=== PATIENT | male | born 1955 | race African-American/Black ===

== ENCOUNTER 2023-09-22 22:24 | Inpatient (IN) | payer OTHER, MEDICARE ==
[~2023-09-22] VITALS: Ht 188 cm; Wt 110.9 kg
[2023-09-22 22:15] VITALS: PULSE 100; RESP 10; O2SAT 93
[2023-09-22 22:40] VITALS: PULSE 85; RESP 20; O2SAT 88
[2023-09-22] MEDS ORDERED: DOPamine 400MG/D5W[STANDARD] 250 ML IV PRN (22:45)
[2023-09-22] MEDS: NOREPINEPHRINE 8 MG/0.9 % NACL 250 ML IV PRN (23:00)
[2023-09-22] MEDS ORDERED: PHENYLEPHRINE 200 MG/D5%-WATER 250 ML IV PRN (23:00)
[2023-09-22 23:02] LABS: HEMATOCRIT 47.2 % (41-53); HEMOGLOBIN 14.6 g/dL (13.5-17.5); MEAN CORPUSCULAR HEMOGLOBIN 28.2 pg (26.0-34.0); MEAN CORPUSCULAR HGB CONC 30.9 G/dL (31.0-37.0); MEAN CORPUSCULAR VOLUME 91 fL (80-100); PLATELET COUNT (AUTO) 336 K/uL (150-450); RED BLOOD CELL COUNT(AUTO) 5.17 MIL/uL (4.50-5.90); RED CELL DISTRIBUTION WIDTH 21.7 % (11.5-14.5); WHITE BLOOD COUNT (AUTO) 6.1 K/uL (4.5-11.0)
[2023-09-22] MEDS ORDERED: PROPOFOL 1000 MG/ISO-OSM 100 ML ONE (23:13)
[2023-09-22 23:14] LABS: CALCIUM, TOTAL 7.9 mg/dL (8.8-10.5); CREATININE 1.47 mg/dL (0.60-1.30); INR 1.2 (0.9-1.1); POTASSIUM 3.6 mmol/L (3.5-5.1); PROTHROMBIN TIME 12.4 SEC (9.4-11.6)
[2023-09-22 23:27] LABS: TROPONIN I-HIGH SENSITIVITY 21 ng/L (<76)
[2023-09-22 23:35] LABS: BAND NEUTROPHILS % (MANUAL) 0 % (0-5)
[2023-09-22 23:36] LABS: LYMPHOCYTES % (MANUAL) 63 % (22-44); MONOCYTES % (MANUAL) 3 % (2-9); REACTIVE LYMPHOCYTES 6 % (0-0); SEGMENTED NEUTROPHILS % 28 % (40-70); TOTAL CELLS COUNTED 100
[2023-09-22 23:39] LABS: ALBUMIN 2.8 g/dL (3.4-5.0); BILIRUBIN,TOTAL 0.4 mg/dL (0.1-1.0); TOTAL PROTEIN, SERUM 6.4 g/dL (6.4-8.2)
[2023-09-22] MEDS ORDERED: BISACODYL 10 MG RECTAL RECTAL SUPPOSITORY PR PRN (23:45)
[2023-09-22] MEDS ORDERED: ONDANSETRON HCL 4 MG/2 ML VIAL IVP PRN (23:45)
[2023-09-22] MEDS ORDERED: DEXTROSE 50%-WATER 25 GM/50 ML SYRINGE IVP PRN (23:45)
[2023-09-22] MEDS: SODIUM CHLORIDE 0.9% 1,000 ML IV ONE (23:45)
[2023-09-22 23:51] LABS: COVID AG,FIA SOURCE NASAL SWAB
[2023-09-22 23:58] LABS: ABG BASE EXCESS -12.5 mmol/L (-2.0-3.0); PO2, ARTERIAL BG 112.7 mmHg (66.0-74.0); SOURCE, BLOOD GAS ARTERIAL; TEMPERATURE, FAHRENHEIT, BG 96.8 FAHREN (96.0-98.6)
[2023-09-23] VITALS (22 sets, daily range): BP systolic 107–144; BP diastolic 68–78; PULSE 66–92; RESP 30–38; TEMP 92.3–98.5; O2SAT 86–100
[2023-09-23] MEDS: HEPARIN SODIUM,PORCINE 5,000 UNITS/ML VIAL SQ SCH
[2023-09-23 00:02] LABS: APPEARANCE,URINE HAZY (CLEAR); BILIRUBIN,URINE NEGATIVE (NEGATIVE); COLOR,URINE YELLOW (YELLOW); GLUCOSE, URINE (UA) >=1000 mg/dL (NEGATIVE); KETONES,URINE NEGATIVE (NEGATIVE); LEUKOCYTE ESTERASE ,URINE NEGATIVE (NEGATIVE); NITRATE,URINE NEGATIVE (NEGATIVE); OCCULT BLOOD,URINE LARGE (NEGATIVE); PH,URINE 6.5 (5.0-8.0); PH,URINE DRUG SCREEN 6.5 (5.0-8.0); PROTEIN,URINE >600,SEE CONFIRM mg/dL (NEGATIVE); SPECIFIC GRAVITIY, URINE 1.015 (1.003-1.030); UROBILINOGEN,URINE <=1.0 mg/dL (<=1.0)
[2023-09-23] MEDS: SODIUM BICARBONATE 100 MEQ in SODIUM CHLORIDE 0.9% 1,000 ML IV STA (00:05)
[2023-09-23 00:06] LABS: SARS-COV2 (COVID) ANTIGEN,FIA Negative (Negative)
[2023-09-23 00:08] LABS: ALCOHOL, URINE DRUG SCREEN NEGATIVE (NEGATIVE); AMPHET/METH SCREEN,URINE NEGATIVE (NEGATIVE); BARBITURATE SCREEN, URINE NEGATIVE (NEGATIVE); BENZODIAZEPINES SCREEN,URINE NEGATIVE (NEGATIVE); CANNABINOID SCREEN,URINE NEGATIVE (NEGATIVE); COCAINE SCREEN,URINE NEGATIVE (NEGATIVE); METHADONE SCREEN, URINE NEGATIVE (NEGATIVE); OPIATE SCREEN,URINE NEGATIVE (NEGATIVE); PHENCYCLIDINE SCREEN,URINE NEGATIVE (NEGATIVE)
[2023-09-23] MEDS: *CLINICAL-LEVOFLOXACIN IVPB DOSING CLINICAL ONE (00:19)
[2023-09-23 00:21] LABS: ABG PCO2 72 mmHg (35-45); ABG PH 7.026 (7.35-7.450); ALLEN TEST, BLOOD GAS Positive; SITE, BLOOD GAS RT RADIAL
[2023-09-23 00:22] LABS: O2 DEVICE,BLOOD GAS VENTILATOR (ROOM AIR); PEEP,BG 5 cm H2O; SPONTANEOUS VT, BG 457 ml; VT, ABG 450 ml
[2023-09-23 00:26] LABS: SULFOSALICYLIC ACID,URINE 4+ (Negative)
[2023-09-23 00:27] LABS: BACTERIA,URINE Few /HPF (None Seen); WBC,URINE 0-2 /HPF (0-5)
[2023-09-23 00:28] LABS: AMORPHOUS SEDIMENT,UR Moderate /LPF (None Seen); FINE GRANULAR CASTS,URINE 0-2 /LPF (None Seen); SQUAMOUS EPITHELIAL CELL,UR Few /LPF (None Seen)
[2023-09-23 00:34] LABS: LACTIC ACID 11.2 mmol/L (0.4-2.0)
[2023-09-23] MEDS: SODIUM CHLORIDE 0.9% 2,850 ML IV ONE (00:45)
[2023-09-23 00:47] LABS: ACETONE,BLOOD NEGATIVE (NEGATIVE)
[2023-09-23 00:57] LABS: THYROID STIMULATING HORMONE 6.03 uIU/mL (0.36-3.74)
[2023-09-23] MEDS: LEVOFLOXACIN 500 MG/D5% WATER 100 ML IV SCH (02:19)
[2023-09-23] MEDS: CefTRIAXone 1 GM/DEXTROSE 50 ML IV ONE (02:19)
[2023-09-23 02:24] LABS: ABG CARBOXYHEMOGLOBIN 1.3 % (0.0-1.5); ABG HCO3 16.4 mmol/L (22.0-26.0); ABG METHEMOGLOBIN 0.3 % (0.0-1.5); ABG OXYGEN CONTENT 18.9 mL/dL (15.0-23.0); ABG OXYHEMOGLOBIN 82.4 % (94.0-100.0); ABG PCO2 59 mmHg (35-45); ABG TOTAL HEMOGLOBIN 16.3 G/dL (12.0-18.0); SOURCE, BLOOD GAS ARTERIAL; TEMPERATURE, FAHRENHEIT, BG 96.8 FAHREN (96.0-98.6)
[2023-09-23 02:45] LABS: ABG PH 7.145 (7.35-7.450)
[2023-09-23 02:46] LABS: ABG A-A DIFF O2 599.6 mmHg (10-20.0); ABG OXYGEN SATURATION 83.7 % (95.0-98.0); ALLEN TEST, BLOOD GAS Positive; O2 DEVICE,BLOOD GAS VENTILATOR (ROOM AIR); SITE, BLOOD GAS RT RADIAL; VT, ABG 450 ml
[2023-09-23 02:48] LABS: PEEP,BG 5 cm H2O; SPONTANEOUS VT, BG 471 ml
[2023-09-23] MEDS: PHENYLEPHRINE 200 MG/D5%-WATER 250 ML IV PRN (02:50)
[2023-09-23] MEDS ORDERED: PROPOFOL 1000 MG/ISO-OSM 100 ML ONE (03:18)
[2023-09-23 04:43] LABS: BASOPHILS % (AUTO) 0.1 % (0.0-2.0); EOSINOPHILS % (AUTO) 0 % (1.0-6.0); HEMATOCRIT 44.7 % (41-53); HEMOGLOBIN 14.4 g/dL (13.5-17.5); LYMPHOCYTES # (AUTO) 0.5 K/uL (1.0-4.8); LYMPHOCYTES % (AUTO) 1.7 % (22.0-44.0); MEAN CORPUSCULAR HEMOGLOBIN 28.2 pg (26.0-34.0); MEAN CORPUSCULAR HGB CONC 32.1 G/dL (31.0-37.0); MEAN CORPUSCULAR VOLUME 88 fL (80-100); MONOCYTES % (AUTO) 7.5 % (2.0-9.0); NEUTROPHILS # (AUTO) 23.8 K/uL (1.8-7.7); PLATELET COUNT (AUTO) 369 K/uL (150-450); RED BLOOD CELL COUNT(AUTO) 5.09 MIL/uL (4.50-5.90); RED CELL DISTRIBUTION WIDTH 21.2 % (11.5-14.5); WHITE BLOOD COUNT (AUTO) 26.3 K/uL (4.5-11.0)
[2023-09-23 04:56] LABS: ALBUMIN 2.6 g/dL (3.4-5.0); BILIRUBIN,TOTAL 0.3 mg/dL (0.1-1.0); CALCIUM, TOTAL 6.2 mg/dL (8.8-10.5); CREATININE 1.64 mg/dL (0.60-1.30)
[2023-09-23 05:03] LABS: TROPONIN I-HIGH SENSITIVITY 139 ng/L (<76)
[2023-09-23 05:09] LABS: NEUTROPHILS % (AUTO) 90.7 % (40.0-70.0)
[2023-09-23] MEDS: IPRATROPIUM BROMIDE 0.5 MG/2.5 ML NEB SOLUTION NEB SCH (08:00)
[2023-09-23] MEDS: BUDESONIDE 0.5 MG/2 ML NEB SOLUTION NEB SCH (08:00)
[2023-09-23] MEDS: ALBUTEROL SULFATE 2.5 MG/0.5 ML NEB SOLUTION NEB SCH (08:00)
[2023-09-23] MEDS: PANTOPRAZOLE SODIUM 40 MG/VIAL IVP SCH (08:53)
[2023-09-23] MEDS: MIDAZOLAM HCL 100 MG in SODIUM CHLORIDE 0.9% 180 ML IV PRN (08:55)
[2023-09-23 09:23] LABS: ABG A-A DIFF O2 607.1 mmHg (10-20.0); ABG BASE EXCESS -7.7 mmol/L (-2.0-3.0); ABG CARBOXYHEMOGLOBIN 1.4 % (0.0-1.5); ABG HCO3 18.1 mmol/L (22.0-26.0); ABG METHEMOGLOBIN 0.3 % (0.0-1.5); ABG OXYGEN SATURATION 88.1 % (95.0-98.0); ABG OXYHEMOGLOBIN 86.6 % (94.0-100.0); ABG PCO2 47 mmHg (35-45); ABG PH 7.241 (7.35-7.450); ABG TOTAL HEMOGLOBIN 15.6 G/dL (12.0-18.0); ALLEN TEST, BLOOD GAS Positive; O2 DEVICE,BLOOD GAS VENTILATOR (ROOM AIR); PO2, ARTERIAL BG 59.5 mmHg (66.0-74.0); SITE, BLOOD GAS RT RADIAL; SOURCE, BLOOD GAS ARTERIAL; TEMPERATURE, FAHRENHEIT, BG 98.2 FAHREN (96.0-98.6)
[2023-09-23 09:24] LABS: PEEP,BG 10 cm H2O; SPONTANEOUS VT, BG 515 ml; VT, ABG 500 ml
[2023-09-23] MEDS: PROPOFOL 1000 MG/ISO-OSM 100 ML IV PRN (09:38)
[2023-09-23] MEDS ORDERED: SODIUM CHLORIDE 0.9% 250 ML IV ONE (10:10)
[2023-09-23] MEDS ORDERED: LevETIRAcetam 500 MG in DEXTROSE 5%-WATER 100 ML IV SCH (11:00)
[2023-09-23] MEDS ORDERED: NOREPINEPHRINE 8 MG/0.9 % NACL 250 ML IV ONE (12:04)
[2023-09-23] MEDS: LevETIRAcetam 500 MG in DEXTROSE 5%-WATER 100 ML IV SCH (12:09)
[2023-09-23] MEDS: MethylPREDNISolone SOD SUCC 125 MG/2 ML VIAL IVP SCH (12:09)
[2023-09-23] MEDS ORDERED: PHENYLEPHRINE 200 MG/D5%-WATER 250 ML IV PRN (12:15)
[2023-09-23] MEDS: NOREPINEPHRINE 8 MG/0.9 % NACL 250 ML IV PRN (12:19)
[2023-09-23] MEDS: PIPERACILLIN/TAZO 3.375 GM/D5W 50 ML IV SCH (16:49)
[2023-09-23 17:13] LABS: C.DIFF GDH ANTIGEN, Stool Negative (Negative); C.DIFF TOXINS A&B, Stool Negative (Negative)
[2023-09-23 17:32] LABS: ALBUMIN 3.1 g/dL (3.4-5.0); BILIRUBIN,TOTAL 0.6 mg/dL (0.1-1.0); CALCIUM, TOTAL 7.7 mg/dL (8.8-10.5); CREATININE 1.45 mg/dL (0.60-1.30); MAGNESIUM 1.9 mg/dL (1.80-2.40); PHOSPHORUS 4.8 mg/dL (2.5-4.9); POTASSIUM 4.5 mmol/L (3.5-5.1); TOTAL PROTEIN, SERUM 7.4 g/dL (6.4-8.2)
[2023-09-23] MEDS: VANCOMYCIN 1.5 GM/WATER(PEG) 300 ML IV ONE (18:13)
[2023-09-23 19:34] LABS: ABG HCO3 15.5 mmol/L (22.0-26.0); ABG METHEMOGLOBIN 0.2 % (0.0-1.5); ABG OXYGEN CONTENT 21.5 mL/dL (15.0-23.0); ABG OXYHEMOGLOBIN 95.8 % (94.0-100.0); ABG PCO2 40 mmHg (35-45); ABG PH 7.217 (7.35-7.450); ABG TOTAL HEMOGLOBIN 15.9 G/dL (12.0-18.0); PO2, ARTERIAL BG 89.2 mmHg (66.0-74.0); SITE, BLOOD GAS RT RADIAL; SOURCE, BLOOD GAS ARTERIAL; TEMPERATURE, FAHRENHEIT, BG 94.5 FAHREN (96.0-98.6)
[2023-09-23 19:35] LABS: O2 DEVICE,BLOOD GAS VENTILATOR (ROOM AIR); PEEP,BG 10 cm H2O; VT, ABG 500 ml
[2023-09-23] MEDS: CHLORHEXIDINE GLUCONATE 2% TOWELETTE [2'S/6'S] TP SCH (21:08)
[2023-09-24] VITALS (26 sets, daily range): BP systolic 98–109; BP diastolic 56–66; PULSE 66–105; RESP 30; TEMP 92.1–97.8; O2SAT 91–100
[2023-09-24] MEDS: INSULIN LISPRO 100 UNITS/ML SQ PRN (00:02)
[2023-09-24 00:06] LABS: SPONTANEOUS VT, BG 521 ml
[2023-09-24 00:40] LABS: GLUCOMETER DEV NAME(LOC) ICU.S6; GLUCOSE,POINT OF CARE 349 MG/DL (70-110)
[2023-09-24 01:07] LABS: ALBUMIN 2.9 g/dL (3.4-5.0); BILIRUBIN,TOTAL 0.5 mg/dL (0.1-1.0); CALCIUM, TOTAL 7.9 mg/dL (8.8-10.5); CREATININE 1.49 mg/dL (0.60-1.30); MAGNESIUM 1.9 mg/dL (1.80-2.40); PHOSPHORUS 4.8 mg/dL (2.5-4.9); POTASSIUM 3.7 mmol/L (3.5-5.1); TOTAL PROTEIN, SERUM 7.2 g/dL (6.4-8.2)
[2023-09-24 02:03] LABS: ABG BASE EXCESS -12.3 mmol/L (-2.0-3.0); ABG CARBOXYHEMOGLOBIN 1.2 % (0.0-1.5); ABG HCO3 15.1 mmol/L (22.0-26.0); ABG METHEMOGLOBIN 0.2 % (0.0-1.5); ABG OXYGEN CONTENT 21.2 mL/dL (15.0-23.0); ABG OXYHEMOGLOBIN 94.7 % (94.0-100.0); ABG PCO2 43 mmHg (35-45); ABG TOTAL HEMOGLOBIN 15.9 G/dL (12.0-18.0); PO2, ARTERIAL BG 78.3 mmHg (66.0-74.0); SOURCE, BLOOD GAS ARTERIAL; TEMPERATURE, FAHRENHEIT, BG 93.2 FAHREN (96.0-98.6)
[2023-09-24 02:04] LABS: ABG PH 7.188 (7.35-7.450); O2 DEVICE,BLOOD GAS VENTILATOR (ROOM AIR); PEEP,BG 10 cm H2O; SITE, BLOOD GAS RT RADIAL; SPONTANEOUS VT, BG 504 ml; VT, ABG 500 ml
[2023-09-24] MEDS: SODIUM BICARBONATE [ADULT] 8.4% 50 MEQ/50 ML SYRINGE IVP ONE (02:34)
[2023-09-24 05:43] LABS: BASOPHILS % (AUTO) 0.2 % (0.0-2.0); EOSINOPHILS % (AUTO) 0 % (1.0-6.0); HEMATOCRIT 45.8 % (41-53); HEMOGLOBIN 14.8 g/dL (13.5-17.5); LYMPHOCYTES # (AUTO) 0.2 K/uL (1.0-4.8); LYMPHOCYTES % (AUTO) 1.1 % (22.0-44.0); MEAN CORPUSCULAR HEMOGLOBIN 28.3 pg (26.0-34.0); MEAN CORPUSCULAR HGB CONC 32.3 G/dL (31.0-37.0); MEAN CORPUSCULAR VOLUME 88 fL (80-100); MONOCYTES # (AUTO) 0.8 K/uL (0.1-1.0); MONOCYTES % (AUTO) 3.4 % (2.0-9.0); NEUTROPHILS # (AUTO) 21.8 K/uL (1.8-7.7); PLATELET COUNT (AUTO) 255 K/uL (150-450); RED BLOOD CELL COUNT(AUTO) 5.22 MIL/uL (4.50-5.90); RED CELL DISTRIBUTION WIDTH 21.4 % (11.5-14.5); WHITE BLOOD COUNT (AUTO) 22.9 K/uL (4.5-11.0)
[2023-09-24 05:48] LABS: NEUTROPHILS % (AUTO) 95.3 % (40.0-70.0)
[2023-09-24 05:54] LABS: ALBUMIN 2.7 g/dL (3.4-5.0); BILIRUBIN,TOTAL 0.5 mg/dL (0.1-1.0); CALCIUM, TOTAL 7.9 mg/dL (8.8-10.5); CREATININE 1.63 mg/dL (0.60-1.30); MAGNESIUM 1.8 mg/dL (1.80-2.40); PHOSPHORUS 5.1 mg/dL (2.5-4.9); POTASSIUM 4.1 mmol/L (3.5-5.1); TOTAL PROTEIN, SERUM 7.1 g/dL (6.4-8.2)
[2023-09-24 08:10] LABS: ABG BASE EXCESS -7.8 mmol/L (-2.0-3.0); ABG CARBOXYHEMOGLOBIN 1.4 % (0.0-1.5); ABG METHEMOGLOBIN 0.2 % (0.0-1.5); ABG OXYGEN CONTENT 20.8 mL/dL (15.0-23.0); ABG OXYGEN SATURATION 97.2 % (95.0-98.0); ABG OXYHEMOGLOBIN 95.6 % (94.0-100.0); ABG PCO2 46 mmHg (35-45); ABG PH 7.246 (7.35-7.450); ABG TOTAL HEMOGLOBIN 15.4 G/dL (12.0-18.0); SOURCE, BLOOD GAS ARTERIAL; TEMPERATURE, FAHRENHEIT, BG 94.2 FAHREN (96.0-98.6)
[2023-09-24 08:11] LABS: ABG A-A DIFF O2 586.2 mmHg (10-20.0); ALLEN TEST, BLOOD GAS Positive; O2 DEVICE,BLOOD GAS VENTILATOR (ROOM AIR); PEEP,BG 10 cm H2O; SITE, BLOOD GAS RT RADIAL; VT, ABG 500 ml
[2023-09-24] MEDS: VANCOMYCIN 1GM/WATER(PEG/NADA) 200 ML IV SCH (08:11)
[2023-09-24 11:50] LABS: GLUCOMETER DEV NAME(LOC) ICU.S6; GLUCOSE,POINT OF CARE 340 MG/DL (70-110)
[2023-09-24 13:10] LABS: ALBUMIN 2.6 g/dL (3.4-5.0); BILIRUBIN,TOTAL 0.5 mg/dL (0.1-1.0); CALCIUM, TOTAL 8.2 mg/dL (8.8-10.5); CREATININE 1.35 mg/dL (0.60-1.30); MAGNESIUM 1.9 mg/dL (1.80-2.40); PHOSPHORUS 4.2 mg/dL (2.5-4.9); POTASSIUM 3.6 mmol/L (3.5-5.1)
[2023-09-24] MEDS ORDERED: MAA ALBUMIN AGGREGATED TC99M/UD<10MCL ISOTOPE 1 EA INJ INJ ONE (13:45)
[2023-09-24] MEDS ORDERED: SODIUM CHLORIDE 0.9% 250 ML IV ONE (16:31)
[2023-09-24 17:10] LABS: CREATININE,URINE RANDOM 77.2 mg/dL (30.0-125.0); SODIUM,URINE RANDOM 15 mmol/l (20-110); UREA NITROGEN,URINE RANDOM 576 mg/dL (350-1000)
[2023-09-24 18:26] LABS: GLUCOMETER DEV NAME(LOC) ICU.S6; GLUCOSE,POINT OF CARE 316 MG/DL (70-110)
[2023-09-24 18:26] LABS: GLUCOMETER DEV NAME(LOC) ICUN.5; GLUCOSE,POINT OF CARE 261 MG/DL (70-110)
[2023-09-24 19:44] LABS: ALBUMIN 2.4 g/dL (3.4-5.0); BILIRUBIN,TOTAL 0.5 mg/dL (0.1-1.0); CALCIUM, TOTAL 8.1 mg/dL (8.8-10.5); CREATININE 1.4 mg/dL (0.60-1.30); MAGNESIUM 1.9 mg/dL (1.80-2.40); PHOSPHORUS 4.7 mg/dL (2.5-4.9); POTASSIUM 3.9 mmol/L (3.5-5.1); TOTAL PROTEIN, SERUM 6.5 g/dL (6.4-8.2)
[2023-09-25] VITALS (27 sets, daily range): BP systolic 93–124; BP diastolic 61–72; PULSE 81–108; RESP 30; TEMP 93.9–97.6; O2SAT 91–95
[2023-09-25 05:29] LABS: EOSINOPHILS % (AUTO) 0 % (1.0-6.0); HEMATOCRIT 39.8 % (41-53); HEMOGLOBIN 13.2 g/dL (13.5-17.5); LYMPHOCYTES # (AUTO) 0.2 K/uL (1.0-4.8); MEAN CORPUSCULAR HEMOGLOBIN 28.6 pg (26.0-34.0); MEAN CORPUSCULAR HGB CONC 33.1 G/dL (31.0-37.0); MEAN CORPUSCULAR VOLUME 86 fL (80-100); NEUTROPHILS # (AUTO) 17.9 K/uL (1.8-7.7); PLATELET COUNT (AUTO) 236 K/uL (150-450); RED BLOOD CELL COUNT(AUTO) 4.61 MIL/uL (4.50-5.90); RED CELL DISTRIBUTION WIDTH 20.8 % (11.5-14.5); WHITE BLOOD COUNT (AUTO) 19.1 K/uL (4.5-11.0)
[2023-09-25 05:36] LABS: CALCIUM, TOTAL 8.3 mg/dL (8.8-10.5); CREATININE 1.42 mg/dL (0.60-1.30); POTASSIUM 3.5 mmol/L (3.5-5.1); VANCOMYCIN,RANDOM 16.2 mcg/mL (25.0-50.0)
[2023-09-25 06:30] LABS: GLUCOMETER DEV NAME(LOC) ICUN.5; GLUCOSE,POINT OF CARE 221 MG/DL (70-110)
[2023-09-25 07:51] LABS: GLUCOMETER DEV NAME(LOC) ICU.S6; GLUCOSE,POINT OF CARE 230 MG/DL (70-110)
[2023-09-25 11:17] LABS: ABG BASE EXCESS -4.5 mmol/L (-2.0-3.0); ABG CARBOXYHEMOGLOBIN 1.2 % (0.0-1.5); ABG HCO3 20.8 mmol/L (22.0-26.0); ABG OXYGEN CONTENT 17.7 mL/dL (15.0-23.0); ABG OXYHEMOGLOBIN 92.9 % (94.0-100.0); ABG PCO2 39 mmHg (35-45); ABG PH 7.347 (7.35-7.450); ABG TOTAL HEMOGLOBIN 13.5 G/dL (12.0-18.0); PO2, ARTERIAL BG 62.7 mmHg (66.0-74.0); SOURCE, BLOOD GAS ARTERIAL; TEMPERATURE, FAHRENHEIT, BG 94.2 FAHREN (96.0-98.6)
[2023-09-25 11:18] LABS: ABG A-A DIFF O2 434.5 mmHg (10-20.0); ALLEN TEST, BLOOD GAS Positive; O2 DEVICE,BLOOD GAS VENTILATOR (ROOM AIR); PEEP,BG 8 cm H2O; SITE, BLOOD GAS RT RADIAL; VT, ABG 500 ml
[2023-09-25 12:16] LABS: GLUCOMETER DEV NAME(LOC) ICU.S6; GLUCOSE,POINT OF CARE 270 MG/DL (70-110)
[2023-09-25 20:25] LABS: GLUCOMETER DEV NAME(LOC) ICU.S6; GLUCOSE,POINT OF CARE 145 MG/DL (70-110)
[2023-09-26] VITALS (27 sets, daily range): BP systolic 100–133; BP diastolic 63–80; PULSE 85–104; RESP 26–30; TEMP 92.7–98.2; O2SAT 90–94
[2023-09-26 03:16] LABS: GLUCOMETER DEV NAME(LOC) ICUN.5; GLUCOSE,POINT OF CARE 146 MG/DL (70-110)
[2023-09-26 06:02] LABS: BASOPHILS % (AUTO) 0.1 % (0.0-2.0); EOSINOPHILS % (AUTO) 0 % (1.0-6.0); HEMATOCRIT 38.2 % (41-53); HEMOGLOBIN 12.4 g/dL (13.5-17.5); LYMPHOCYTES # (AUTO) 0.2 K/uL (1.0-4.8); LYMPHOCYTES % (AUTO) 1.4 % (22.0-44.0); MEAN CORPUSCULAR HEMOGLOBIN 27.9 pg (26.0-34.0); MEAN CORPUSCULAR HGB CONC 32.6 G/dL (31.0-37.0); MEAN CORPUSCULAR VOLUME 86 fL (80-100); MONOCYTES # (AUTO) 0.5 K/uL (0.1-1.0); MONOCYTES % (AUTO) 2.9 % (2.0-9.0); NEUTROPHILS # (AUTO) 16.4 K/uL (1.8-7.7); PLATELET COUNT (AUTO) 193 K/uL (150-450); RED BLOOD CELL COUNT(AUTO) 4.46 MIL/uL (4.50-5.90); RED CELL DISTRIBUTION WIDTH 21.6 % (11.5-14.5); WHITE BLOOD COUNT (AUTO) 17.2 K/uL (4.5-11.0)
[2023-09-26 06:09] LABS: NEUTROPHILS % (AUTO) 95.6 % (40.0-70.0)
[2023-09-26 06:31] LABS: CALCIUM, TOTAL 8.3 mg/dL (8.8-10.5); CREATININE 1.38 mg/dL (0.60-1.30); POTASSIUM 3.5 mmol/L (3.5-5.1)
[2023-09-26 06:41] LABS: GLUCOMETER DEV NAME(LOC) ICU.S6; GLUCOSE,POINT OF CARE 183 MG/DL (70-110)
[2023-09-26 15:54] LABS: ABG BASE EXCESS -3.9 mmol/L (-2.0-3.0); ABG CARBOXYHEMOGLOBIN 0.9 % (0.0-1.5); ABG HCO3 21.1 mmol/L (22.0-26.0); ABG OXYGEN CONTENT 16.2 mL/dL (15.0-23.0); ABG OXYGEN SATURATION 93.3 % (95.0-98.0); ABG OXYHEMOGLOBIN 92.5 % (94.0-100.0); ABG PCO2 41 mmHg (35-45); ABG PH 7.345 (7.35-7.450); ABG TOTAL HEMOGLOBIN 12.4 G/dL (12.0-18.0); ALLEN TEST, BLOOD GAS Positive; PO2, ARTERIAL BG 60.4 mmHg (79.0-87.0); SITE, BLOOD GAS RT RADIAL; SOURCE, BLOOD GAS ARTERIAL; TEMPERATURE, FAHRENHEIT, BG 92.6 FAHREN (96.0-98.6)
[2023-09-26 15:55] LABS: O2 DEVICE,BLOOD GAS VENTILATOR (ROOM AIR); PEEP,BG 8 cm H2O; VT, ABG 500 ml
[2023-09-26 19:51] LABS: ABG BASE EXCESS -4.2 mmol/L (-2.0-3.0); ABG CARBOXYHEMOGLOBIN 1.2 % (0.0-1.5); ABG HCO3 20.7 mmol/L (22.0-26.0); ABG METHEMOGLOBIN 0.8 % (0.0-1.5); ABG OXYGEN SATURATION 85.8 % (95.0-98.0); ABG OXYHEMOGLOBIN 84.1 % (94.0-100.0); ABG PCO2 42 mmHg (35-45); ABG TOTAL HEMOGLOBIN 12.7 G/dL (12.0-18.0); PO2, ARTERIAL BG 44.8 mmHg (79.0-87.0); SOURCE, BLOOD GAS ARTERIAL
[2023-09-26 19:52] LABS: SITE, BLOOD GAS RT BRACHIAL
[2023-09-26 19:53] LABS: O2 DEVICE,BLOOD GAS VENTILATOR (ROOM AIR); PEEP,BG 8 cm H2O; SPONTANEOUS VT, BG 531 ml; VENT MODE, BG AV (ROOM AIR); VT, ABG 500 ml
[2023-09-26 20:30] LABS: GLUCOMETER DEV NAME(LOC) ICU.S6; GLUCOSE,POINT OF CARE 182 MG/DL (70-110)
[2023-09-26 20:30] LABS: GLUCOMETER DEV NAME(LOC) ICU.S6; GLUCOSE,POINT OF CARE 194 MG/DL (70-110)
[2023-09-27] VITALS (26 sets, daily range): BP systolic 117–126; BP diastolic 72–78; PULSE 91–111; RESP 26; TEMP 96.2–99.2; O2SAT 88–94
[2023-09-27] MEDS: LEVOFLOXACIN 750 MG/D5% WATER 150 ML IV SCH (00:24)
[2023-09-27 02:21] LABS: GLUCOMETER DEV NAME(LOC) ICU.S6; GLUCOSE,POINT OF CARE 150 MG/DL (70-110)
[2023-09-27 06:14] LABS: BASOPHILS % (AUTO) 0.1 % (0.0-2.0); EOSINOPHILS % (AUTO) 0 % (1.0-6.0); HEMATOCRIT 35.7 % (41-53); HEMOGLOBIN 11.8 g/dL (13.5-17.5); LYMPHOCYTES # (AUTO) 0.3 K/uL (1.0-4.8); LYMPHOCYTES % (AUTO) 2.1 % (22.0-44.0); MEAN CORPUSCULAR HEMOGLOBIN 28.4 pg (26.0-34.0); MEAN CORPUSCULAR VOLUME 86 fL (80-100); MONOCYTES # (AUTO) 0.5 K/uL (0.1-1.0); MONOCYTES % (AUTO) 3.4 % (2.0-9.0); NEUTROPHILS # (AUTO) 13.9 K/uL (1.8-7.7); PLATELET COUNT (AUTO) 183 K/uL (150-450); RED BLOOD CELL COUNT(AUTO) 4.15 MIL/uL (4.50-5.90); RED CELL DISTRIBUTION WIDTH 21.9 % (11.5-14.5); WHITE BLOOD COUNT (AUTO) 14.7 K/uL (4.5-11.0)
[2023-09-27 06:17] LABS: ANION GAP 9 mmol/L (8-16); CALCIUM, TOTAL 8.5 mg/dL (8.8-10.5); CARBON DIOXIDE 26 mmol/L (22-29); CHLORIDE 109 mmol/L (98-107); CREATININE 1.28 mg/dL (0.60-1.30); GLOMERULAR FILTR. RATE CALC > 60 mL/min (>60); GLUCOSE,RANDOM 193 mg/dL (70-110); POTASSIUM 3.8 mmol/L (3.5-5.1); SODIUM SERUM 144 mmol/L (136-145); UREA NITROGEN, BLOOD 34 mg/dL (7-18)
[2023-09-27 06:29] LABS: NEUTROPHILS % (AUTO) 94.4 % (40.0-70.0)
[2023-09-27] MEDS ORDERED: SODIUM CHLORIDE 0.9% 250 ML IV ONE ×2 (07:33→20:20)
[2023-09-27 07:45] LABS: GLUCOMETER DEV NAME(LOC) ICUN.5; GLUCOSE,POINT OF CARE 171 MG/DL (70-110)
[2023-09-27 13:05] LABS: GLUCOMETER DEV NAME(LOC) ICUN.5; GLUCOSE,POINT OF CARE 154 MG/DL (70-110)
[2023-09-27] MEDS: DEXMEDETOMIDINE HCL 400 MCG in SODIUM CHLORIDE 0.9% 96 ML IV PRN (23:48)
[2023-09-28] VITALS (20 sets, daily range): BP systolic 102–129; BP diastolic 66–84; PULSE 90–120; RESP 24–27; TEMP 97.5–99.7; O2SAT 84–89
[2023-09-28 05:29] LABS: BASOPHILS % (AUTO) 0.1 % (0.0-2.0); EOSINOPHILS % (AUTO) 0 % (1.0-6.0); HEMATOCRIT 38.2 % (41-53); HEMOGLOBIN 12.2 g/dL (13.5-17.5); LYMPHOCYTES # (AUTO) 0.3 K/uL (1.0-4.8); LYMPHOCYTES % (AUTO) 1.9 % (22.0-44.0); MEAN CORPUSCULAR HEMOGLOBIN 27.7 pg (26.0-34.0); MEAN CORPUSCULAR HGB CONC 31.9 G/dL (31.0-37.0); MEAN CORPUSCULAR VOLUME 87 fL (80-100); MONOCYTES % (AUTO) 5.5 % (2.0-9.0); NEUTROPHILS # (AUTO) 16.2 K/uL (1.8-7.7); NEUTROPHILS % (AUTO) 92.5 % (40.0-70.0); PLATELET COUNT (AUTO) 169 K/uL (150-450); RED BLOOD CELL COUNT(AUTO) 4.39 MIL/uL (4.50-5.90); RED CELL DISTRIBUTION WIDTH 22.1 % (11.5-14.5); WHITE BLOOD COUNT (AUTO) 17.5 K/uL (4.5-11.0)
[2023-09-28 05:47] LABS: ANION GAP 8 mmol/L (8-16); CALCIUM, TOTAL 8.7 mg/dL (8.8-10.5); CARBON DIOXIDE 27 mmol/L (22-29); CHLORIDE 109 mmol/L (98-107); CREATININE 1.33 mg/dL (0.60-1.30); GLOMERULAR FILTR. RATE CALC > 60 mL/min (>60); GLUCOSE,RANDOM 180 mg/dL (70-110); POTASSIUM 4.5 mmol/L (3.5-5.1); SODIUM SERUM 144 mmol/L (136-145); UREA NITROGEN, BLOOD 45 mg/dL (7-18); VANCOMYCIN,RANDOM 19.9 mcg/mL (25.0-50.0)
[2023-09-28 05:51] LABS: GLUCOMETER DEV NAME(LOC) ICUN.5; GLUCOSE,POINT OF CARE 166 MG/DL (70-110)
[2023-09-28 05:51] LABS: GLUCOMETER DEV NAME(LOC) ICUN.5; GLUCOSE,POINT OF CARE 164 MG/DL (70-110)
[2023-09-28 05:51] LABS: GLUCOMETER DEV NAME(LOC) ICUN.5; GLUCOSE,POINT OF CARE 178 MG/DL (70-110)
[2023-09-28] MEDS: VANCOMYCIN 750 MG/WATER(PEG) 150 ML IV SCH (09:38)
[2023-09-28] MEDS: BUMETANIDE 0.25 MG/ML 4 ML VIAL IVP ONE (10:33)
[2023-09-28 11:13] LABS: ABG BASE EXCESS -3.3 mmol/L (-2.0-3.0); ABG CARBOXYHEMOGLOBIN 1.1 % (0.0-1.5); ABG HCO3 20.5 mmol/L (22.0-26.0); ABG METHEMOGLOBIN 0.2 % (0.0-1.5); ABG OXYGEN CONTENT 16.2 mL/dL (15.0-23.0); ABG OXYHEMOGLOBIN 83.9 % (94.0-100.0); ABG PCO2 66 mmHg (35-45); ABG TOTAL HEMOGLOBIN 13.7 G/dL (12.0-18.0); PO2, ARTERIAL BG 57.2 mmHg (79.0-87.0); SOURCE, BLOOD GAS ARTERIAL
[2023-09-28 11:18] LABS: ABG A-A DIFF O2 590.7 mmHg (10-20.0); ABG PH 7.194 (7.35-7.450); ALLEN TEST, BLOOD GAS Positive; O2 DEVICE,BLOOD GAS VENTILATOR (ROOM AIR); PEEP,BG 10 cm H2O; SITE, BLOOD GAS RT RADIAL; VT, ABG 500 ml
[2023-09-28 11:19] LABS: SPONTANEOUS VT, BG 511 ml
[2023-09-28] MEDS: MethylPREDNISolone SOD SUCC 125 MG/2 ML VIAL IVP SCH (12:13)
[2023-09-28 12:47] LABS: ABG BASE EXCESS -4.7 mmol/L (-2.0-3.0); ABG CARBOXYHEMOGLOBIN 1.1 % (0.0-1.5); ABG HCO3 19.5 mmol/L (22.0-26.0); ABG METHEMOGLOBIN 0.1 % (0.0-1.5); ABG OXYGEN CONTENT 14.7 mL/dL (15.0-23.0); ABG OXYHEMOGLOBIN 76.6 % (94.0-100.0); ABG PCO2 60 mmHg (35-45); ABG TOTAL HEMOGLOBIN 13.7 G/dL (12.0-18.0); PO2, ARTERIAL BG 48.6 mmHg (79.0-87.0); SOURCE, BLOOD GAS ARTERIAL; TEMPERATURE, FAHRENHEIT, BG 98.3 FAHREN (96.0-98.6)
[2023-09-28 12:49] LABS: ABG A-A DIFF O2 604.9 mmHg (10-20.0); ABG OXYGEN SATURATION 77.5 % (95.0-98.0); ABG PH 7.206 (7.35-7.450); ALLEN TEST, BLOOD GAS Positive; O2 DEVICE,BLOOD GAS VENTILATOR (ROOM AIR); PEEP,BG 10 cm H2O; SITE, BLOOD GAS RT RADIAL; VT, ABG 500 ml
[2023-09-28 12:50] LABS: SPONTANEOUS VT, BG 515 ml
[2023-09-28 14:11] LABS: GLUCOMETER DEV NAME(LOC) ICU.S6; GLUCOSE,POINT OF CARE 182 MG/DL (70-110)
[2023-09-28] MEDS: BUDESONIDE 0.5 MG/2 ML NEB SOLUTION NEB SCH (15:37)
[2023-09-28 15:52] LABS: ABG BASE EXCESS -3.7 mmol/L (-2.0-3.0); ABG CARBOXYHEMOGLOBIN 1.1 % (0.0-1.5); ABG HCO3 20.1 mmol/L (22.0-26.0); ABG METHEMOGLOBIN 0.1 % (0.0-1.5); ABG OXYGEN CONTENT 15.7 mL/dL (15.0-23.0); ABG TOTAL HEMOGLOBIN 13.6 G/dL (12.0-18.0); PO2, ARTERIAL BG 57.3 mmHg (79.0-87.0); SOURCE, BLOOD GAS ARTERIAL; TEMPERATURE, FAHRENHEIT, BG 99.6 FAHREN (96.0-98.6)
[2023-09-28 15:53] LABS: ABG PCO2 67 mmHg (35-45); ABG PH 7.181 (7.35-7.450); ALLEN TEST, BLOOD GAS Positive; SITE, BLOOD GAS LFT RADIAL
[2023-09-28 15:54] LABS: ABG A-A DIFF O2 586.6 mmHg (10-20.0); O2 DEVICE,BLOOD GAS VENTILATOR (ROOM AIR); SPONTANEOUS VT, BG 485 ml; VT, ABG 500 ml
[2023-09-28 15:55] LABS: PEEP,BG 10 cm H2O
[2023-09-28] MEDS: ACETAMINOPHEN 325 MG TABLET PO PRN (17:22)
[2023-09-28] MEDS ORDERED: VANCOMYCIN 750 MG/WATER(PEG) 150 ML IV SCH (21:00)
== END 2023-09-28 19:00 | DRG 870 ==
LOC: EMS 22:28 → EDBD 09-23 02:31 → ICU 09-23 02:31
PROVIDERS: ADMIT Internal Medicine; ATTEND Internal Medicine
PROC: 0BH17EZ Insertion of Endotracheal Airway into Trachea, Via Natural or Artificial Opening (ICD-10-PCS; principal; 2023-09-23)
PROC: 5A1955Z Respiratory Ventilation, Greater than 96 Consecutive Hours (ICD-10-PCS; 2023-09-23)
PROC: 4A10X4Z Monitoring of Central Nervous Electrical Activity, External Approach (ICD-10-PCS; 2023-09-23)
PROC: 5A12012 Performance of Cardiac Output, Single, Manual (ICD-10-PCS; 2023-09-26)
DX: A41.9 Sepsis, unspecified organism (principal); J96.21 Acute and chronic respiratory failure with hypoxia; J96.22 Acute and chronic respiratory failure with hypercapnia; R65.21 Severe sepsis with septic shock; I50.31 Acute diastolic (congestive) heart failure; J69.0 Pneumonitis due to inhalation of food and vomit; N17.9 Acute kidney failure, unspecified; J44.1 Chronic obstructive pulmonary disease with (acute) exacerbation; E87.29 Other acidosis; Z99.11 Dependence on respirator [ventilator] status; I46.9 Cardiac arrest, cause unspecified; E11.9 Type 2 diabetes mellitus without complications; G25.3 Myoclonus; Z87.891 Personal history of nicotine dependence
CPT/HCPCS: 36600; 70450; 71045; 71250; 72192; 74150; 76770; 78580; 80048; 80053; 80202; 80307; 81001; 81002; 82009; 82550; 82570; 82805; 82962; 83605; 83735; 83880; 84100; 84156; 84300; 84443; 84484; 84540; 85025; 85610; 85730; 87040; 87070; 87081; 87205; 87324; 87449; 92950; 93005; 93306; 93970; 94002; 94003; 94060; 94640; 95816; 99291; A9540; C9113; J0696; J0712; J1644; J1956; J2250; J2370; J2543; J2704; J2930; J3490; J7030; J7050; J7060; Q9967; 36415-L1; 36415-TC; J7613